=== PATIENT | male | born 1985 | race Caucasian/White ===

== ENCOUNTER 2020-02-17 08:36 | Inpatient (IN) | payer BC ==
[2020-02-17] MEDS ORDERED: Sodium Chloride 0.9% 10 ML Syringe FLUSH PRN (08:45)
--- NOTE | 2020-02-17 08:57 | EDM.PDOC ---
ED HPI GENERAL MEDICAL PROBLEM - General Chief Complaint: Respiratory Problem Stated Complaint: [id number] SOB Time Seen by Provider: 02/17/20 08:45 Source of Information: Reports: Patient, RN, RN Notes Reviewed History Limitations: Reports: No Limitations - History of Present Illness INITIAL COMMENTS - FREE TEXT/NARRATIVE: Patient presents to ER with complaint of shortness of breath, chills. Patient states he was cleaning out a grain bin yesterday, states he feels he may have gotten overheated. Patient denies wearing a mask when he was cleaning out the grain bin. Patient states he did have some chills yesterday, unsure if he had fever. Admits to nausea yesterday but no vomiting, denies diarrhea. Denies nausea today. Patient states cough with deep breathing only. Patient denies being a smoker. Patient denies any known exposure to COVID. Onset: Gradual - Related Data Allergies Allergy/AdvReac Type Severity Reaction Status Date / Time No Known Allergies Allergy Verified 02/17/20 08:46 Home Meds: Home Meds . [No Known Home Meds] 02/17/20 [History] Past Medical History - Past Health History Medical/Surgical History: Denies Medical/Surgical History HEENT History: Reports: None Cardiovascular History: Reports: None Respiratory History: Reports: None Gastrointestinal History: Reports: None Genitourinary History: Reports: None Musculoskeletal History: Reports: None Neurological History: Reports: None Psychiatric History: Reports: None Endocrine/Metabolic History: Reports: None Hematologic History: Reports: None Immunologic History: Reports: None Oncologic (Cancer) History: Reports: None Dermatologic History: Reports: None - Infectious Disease History Infectious Disease History: Reports: None - Past Surgical History Head Surgeries/Procedures: Reports: None Social & Family History - Family History Family Medical History: Noncontributory - Tobacco Use Smoking Status *Q: Never Smoker - Caffeine Use Caffeine Use: Reports: Coffee - Recreational Drug Use Recreational Drug Use: No ED ROS GENERAL - Review of Systems Review Of Systems: Comprehensive ROS is negative, except as noted in HPI. ED EXAM, GENERAL - Physical Exam Exam: See Below Exam Limited By: No Limitations General Appearance: Alert, WD/WN, No Apparent Distress Eye Exam: Bilateral Eye: EOMI, Normal Inspection Ears: Normal External Exam, Hearing Grossly Normal Nose: Normal Inspection Throat/Mouth: Normal Inspection, Normal Voice, No Airway Compromise Head: Atraumatic, Normocephalic Neck: Normal Inspection, Supple, Non-Tender, Full Range of Motion Respiratory/Chest: No Respiratory Distress, No Accessory Muscle Use, Chest Non- Tender, Decreased Breath Sounds Cardiovascular: Normal Peripheral Pulses, Regular Rate, Rhythm, No Edema, No Gallop, No JVD, No Murmur, No Rub Peripheral Pulses: 2+: Radial (L), Radial (R) GI/Abdominal: Normal Bowel Sounds, Soft, Non-Tender (Male) Exam: Deferred Rectal (Males) Exam: Deferred Back Exam: Normal Inspection, Full Range of Motion, NT Extremities: Normal Inspection, Normal Range of Motion, Non-Tender, Normal Capillary Refill, No Pedal Edema Neurological: Alert, Oriented, CN II-XII Intact, Normal Cognition, Normal Gait, Normal Reflexes, No Motor/Sensory Deficits Psychiatric: Normal Affect, Normal Mood Skin Exam: Warm, Dry, Intact, Normal Color, No Rash Lymphatic: No Adenopathy Course - Vital Signs Last Recorded V/S: Last Vital Signs Temp 97.6 F 02/17/20 08:46 Pulse 74 02/17/20 08:46 Resp 24 H 02/17/20 08:46 BP 114/59 L 02/17/20 08:46 Pulse Ox 91 L 02/17/20 08:46 - Orders/Labs/Meds Orders: Active Orders 24 hr Category Date Time Status Admission Diagnosis [ADT] Routine ADT 02/17/20 11:08 Ordered Admission Diagnosis [ADT] Stat ADT 02/17/20 11:08 Ordered Admission Status [Patient Status] [ADT] Routine ADT 02/17/20 11:08 Active Patient Status [ADT] Routine ADT 02/17/20 11:08 Active CULTURE BLOOD [BC] Stat Lab 02/17/20 09:35 Received CULTURE BLOOD [BC] Stat Lab 02/17/20 09:38 Received UA RFX ESTEVAN AND CULT IF INDIC [URIN] Stat Lab 02/17/20 10:09 Ordered Sodium Chloride 0.9% [Saline Flush] Med 02/17/20 08:45 Active 10 ml FLUSH ASDIRECTED PRN Blood Culture x2 Reflex Set [OM.PC] Stat Oth 02/17/20 09:13 Ordered Peripheral IV Insertion Adult [OM.PC] Stat Oth 02/17/20 08:45 Ordered Medication Orders Sodium Chloride (Saline Flush) 10 ml FLUSH ASDIRECTED PRN PRN Reason: Keep Vein Open Last Admin: 02/17/20 09:02 Dose: 10 ml Documented by: FAVIAN Labs: Laboratory Tests 02/17/20 02/17/20 02/17/20 Range/Units 08:56 08:56 08:56 WBC 25.1 H (5.0-10.0) 10^3/uL RBC 5.24 (4.6-6.2) 10^6/uL Hgb 16.0 (14.0-18.0) g/dL Hct 45.8 (40.0-54.0) % MCV 87.4 (80-100) fL MCH 30.5 (27.0-34.0) pg MCHC 34.9 (33.0-35.0) g/dL Plt Count 129 L (150-450) 10^3/uL Neut % (Auto) 93.0 H (42.2-75.2) % Lymph % (Auto) 3.4 L (20.5-50.1) % Freestone % (Auto) 3.5 (2-8) % Eos % (Auto) 0.0 L (1.0-3.0) % Baso % (Auto) 0.1 (0.0-1.0) % Add Manual Diff Yes Neutrophils % (Manual) 74 (42-75) % Band Neutrophils % 24 % Monocytes % (Manual) 2 (2-8) % Toxic Granulation 1+ slight Platelet Estimate Decreased D-Dimer, Quantitative 353 (0-400) ng/mL ABG pH (7.35-7.45) ABG pCO2 (35-45) mmHg ABG pO2 (70-100) mmHg ABG HCO3 (22-26) mmol/L ABG O2 Saturation (95-100) % ABG Base Excess ((-2)-(+3)) mmol/L Francisco Test O2 Delivery Device Oxygen Flow Rate Sodium 139 (136-145) mmol/L Potassium 4.6 (3.5-5.1) mmol/L Chloride 101 (98-107) mmol/L Carbon Dioxide 29 (21-32) mmol/L Anion Gap 13.6 H (7-13) mEq/L BUN 13 (7-18) mg/dL Creatinine 1.25 (0.70-1.30) mg/dL Est Cr Clr Drug Dosing 88.69 mL/min Estimated GFR (MDRD) > 60 BUN/Creatinine Ratio 10.4 (No establ ref range) Glucose 115 H (74-99) mg/dL Lactic Acid (0.4-2.0) mmol/L Calcium 9.1 (8.5-10.1) mg/dL Total Bilirubin 5.4 H (0.2-1.0) mg/dL Direct Bilirubin (0.0-0.2) mg/dL AST 29 (15-37) U/L ALT 33 (16-63) U/L Alkaline Phosphatase 48 (46-116) U/L C-Reactive Protein 21.9 H (0.0-0.9) mg/dL Total Protein 7.7 (6.4-8.2) g/dL Albumin 4.3 (3.4-5.0) g/dL Globulin 3.4 Albumin/Globulin Ratio 1.26 COVID-19 (SHIRIN) (NEGATIVE) 02/17/20 02/17/20 02/17/20 Range/Units 08:56 08:56 08:57 WBC (5.0-10.0) 10^3/uL RBC (4.6-6.2) 10^6/uL Hgb (14.0-18.0) g/dL Hct (40.0-54.0) % MCV (80-100) fL MCH (27.0-34.0) pg MCHC (33.0-35.0) g/dL Plt Count (150-450) 10^3/uL Neut % (Auto) (42.2-75.2) % Lymph % (Auto) (20.5-50.1) % Freestone % (Auto) (2-8) % Eos % (Auto) (1.0-3.0) % Baso % (Auto) (0.0-1.0) % Add Manual Diff Neutrophils % (Manual) (42-75) % Band Neutrophils % % Monocytes % (Manual) (2-8) % Toxic Granulation Platelet Estimate D-Dimer, Quantitative (0-400) ng/mL ABG pH (7.35-7.45) ABG pCO2 (35-45) mmHg ABG pO2 (70-100) mmHg ABG HCO3 (22-26) mmol/L ABG O2 Saturation (95-100) % ABG Base Excess ((-2)-(+3)) mmol/L Francisco Test O2 Delivery Device Oxygen Flow Rate Sodium (136-145) mmol/L Potassium (3.5-5.1) mmol/L Chloride (98-107) mmol/L Carbon Dioxide (21-32) mmol/L Anion Gap (7-13) mEq/L BUN (7-18) mg/dL Creatinine (0.70-1.30) mg/dL Est Cr Clr Drug Dosing mL/min Estimated GFR (MDRD) BUN/Creatinine Ratio (No establ ref range) Glucose (74-99) mg/dL Lactic Acid 1.2 (0.4-2.0) mmol/L Calcium (8.5-10.1) mg/dL Total Bilirubin (0.2-1.0) mg/dL Direct Bilirubin 0.3 H (0.0-0.2) mg/dL AST (15-37) U/L ALT (16-63) U/L Alkaline Phosphatase (46-116) U/L C-Reactive Protein (0.0-0.9) mg/dL Total Protein (6.4-8.2) g/dL Albumin (3.4-5.0) g/dL Globulin Albumin/Globulin Ratio COVID-19 (SHIRIN) Negative (NEGATIVE) 02/17/20 Range/Units 10:05 WBC (5.0-10.0) 10^3/uL RBC (4.6-6.2) 10^6/uL Hgb (14.0-18.0) g/dL Hct (40.0-54.0) % MCV (80-100) fL MCH (27.0-34.0) pg MCHC (33.0-35.0) g/dL Plt Count (150-450) 10^3/uL Neut % (Auto) (42.2-75.2) % Lymph % (Auto) (20.5-50.1) % Freestone % (Auto) (2-8) % Eos % (Auto) (1.0-3.0) % Baso % (Auto) (0.0-1.0) % Add Manual Diff Neutrophils % (Manual) (42-75) % Band Neutrophils % % Monocytes % (Manual) (2-8) % Toxic Granulation Platelet Estimate D-Dimer, Quantitative (0-400) ng/mL ABG pH 7.44 (7.35-7.45) ABG pCO2 38 (35-45) mmHg ABG pO2 77 (70-100) mmHg ABG HCO3 25.2 (22-26) mmol/L ABG O2 Saturation 95 (95-100) % ABG Base Excess 2 ((-2)-(+3)) mmol/L Francisco Test Lb O2 Delivery Device Room air Oxygen Flow Rate 0 Sodium (136-145) mmol/L Potassium (3.5-5.1) mmol/L Chloride (98-107) mmol/L Carbon Dioxide (21-32) mmol/L Anion Gap (7-13) mEq/L BUN (7-18) mg/dL Creatinine (0.70-1.30) mg/dL Est Cr Clr Drug Dosing mL/min Estimated GFR (MDRD) BUN/Creatinine Ratio (No establ ref range) Glucose (74-99) mg/dL Lactic Acid (0.4-2.0) mmol/L Calcium (8.5-10.1) mg/dL Total Bilirubin (0.2-1.0) mg/dL Direct Bilirubin (0.0-0.2) mg/dL AST (15-37) U/L ALT (16-63) U/L Alkaline Phosphatase (46-116) U/L C-Reactive Protein (0.0-0.9) mg/dL Total Protein (6.4-8.2) g/dL Albumin (3.4-5.0) g/dL Globulin Albumin/Globulin Ratio COVID-19 (SHIRIN) (NEGATIVE) Meds: Medications Generic Name Dose Route Start Last Admin Trade Name Freq PRN Reason Stop Dose Admin Sodium Chloride 10 ml 02/17/20 08:45 02/17/20 09:02 Saline Flush FLUSH 10 ml ASDIRECTED PRN Administration Keep Vein Open Discontinued Medications Generic Name Dose Route Start Last Admin Trade Name Freq PRN Reason Stop Dose Admin Ceftriaxone Sodium 1 gm/ 50 mls @ 100 mls/hr 02/17/20 09:53 02/17/20 10:06 Sodium Chloride IV 02/17/20 10:22 100 mls/hr ONETIME ONE Administration Sodium Chloride 1,000 mls @ 999 mls/hr 02/17/20 09:59 02/17/20 10:06 Normal Saline IV 02/17/20 10:59 999 mls/hr .BOLUS ONE Administration Iopamidol 100 ml 02/17/20 10:12 02/17/20 10:32 Isovue-300 (61%) IVPUSH 02/17/20 10:13 75 ml ONETIME ONE Administration Methylprednisolone Sodium Succinate 125 mg 02/17/20 09:53 02/17/20 10:06 Solu-Medrol IVPUSH 02/17/20 09:54 125 mg ONETIME ONE Administration - Radiology Interpretation Free Text/Narrative:: Chest xray: PROCEDURE INFORMATION: Exam: XR Chest, 1 View Exam date and time: 02/17/2020 8:50 AM Age: 34 years old Clinical indication: Other: SOB, sats 91%, chills TECHNIQUE: Imaging protocol: XR of the chest Views: 1 view. COMPARISON: No relevant prior studies available. FINDINGS: Lungs: Unremarkable. No consolidation. Pleural space: Unremarkable. No pleural effusion. No pneumothorax. Heart/Mediastinum: Unremarkable. No cardiomegaly. Bones/joints: Unremarkable. IMPRESSION: No acute findings. Thank you for allowing us to participate in the care of your patient. Dictated and Authenticated by: Naveen Chase MD 02/17/2020 9:40 AM Central Time ([place] & [place]) Chest CT with contrast: PROCEDURE INFORMATION: Exam: CT Chest With Contrast Exam date and time: 02/17/2020 10:21 AM Age: 34 years old Clinical indication: Shortness of breath; Additional info: SOB, sats 90% ra, crp elevated wbc 25 TECHNIQUE: Imaging protocol: Computed tomography of the chest with intravenous contrast. Radiation optimization: All CT scans at this facility use at least one of these dose optimization techniques: automated exposure control; mA and/or kV adjustment per patient size (includes targeted exams where dose is matched to clinical indication); or iterative reconstruction. Contrast material: [id number]; Contrast volume: 75 ml; Contrast route: INTRAVENOUS (IV); COMPARISON: CR Chest 1V Frontal 02/17/2020 8:50 AM FINDINGS: Lungs: Minimal basilar atelectasis is seen bilaterally. There is a small nodule noted involving the right upper lobe measuring 2 mm on image 4/31. Pleural space: Unremarkable. No pneumothorax. No pleural effusion. Heart: Unremarkable. No cardiomegaly. No pericardial effusion. Aorta: Unremarkable. No aortic aneurysm. Lymph nodes: Unremarkable. No enlarged lymph nodes. Bones/joints: Unremarkable. No acute fracture. Soft tissues: Unremarkable. IMPRESSION: Minimal bibasilar possible dependent atelectasis. Small right upper lobe nodule. For patients at low risk (minimal or absent history of smoking and of other known risk factors), no routine follow-up is indicated. For patients at high risk (history of smoking or of other known risk factors), consider optional CT at 12 months. (dhaval Centeno al., Fleischner Society, 2017). In Thank you for allowing us to participate in the care of your patient. Dictated and Authenticated by: Naveen Chase MD 02/17/2020 10:49 AM Central Time ([place] & [place]) See rad report - Re-Assessments/Exams Free Text/Narrative Re-Assessment/Exam: 02/17/20 11:16 Discussed patient case with Dr. Argueta who agreed to admit the patient for inpatient admission. Departure - Departure Time of Disposition: 11:16 Disposition: Admitted As Inpatient 66 Condition: Fair Clinical Impression: Pneumonia Qualifiers: Pneumonia type: due to unspecified organism Laterality: bilateral Lung location: unspecified part of lung Qualified Code(s): J18.9 - Pneumonia, unspecified organism - Discharge Information *PRESCRIPTION DRUG MONITORING PROGRAM REVIEWED*: No *COPY OF PRESCRIPTION DRUG MONITORING REPORT IN PATIENT [facility]: No Forms: ED Department Discharge Sepsis Event Note (ED) - Evaluation Sepsis Screening Result: No Definite Risk - Focused Exam Vital Signs: Vital Signs Temp Pulse Resp BP Pulse Ox 02/17/20 08:46 97.6 F 74 24 H 114/59 L 91 L - My Orders Last 24 Hours: My Active Orders 02/17/20 08:45 Sodium Chloride 0.9% [Saline Flush] 10 ml FLUSH ASDIRECTED PRN Peripheral IV Insertion Adult [OM.PC] Stat 02/17/20 09:13 Blood Culture x2 Reflex Set [OM.PC] Stat 02/17/20 09:35 CULTURE BLOOD [BC] Stat 02/17/20 09:38 CULTURE BLOOD [BC] Stat 02/17/20 10:09 UA RFX ESTEVAN AND CULT IF INDIC [URIN] Stat 02/17/20 11:08 Admission Diagnosis [ADT] Stat Admission Status [Patient Status] [ADT] Routine - Assessment/Plan Last 24 Hours: My Active Orders 02/17/20 08:45 Sodium Chloride 0.9% [Saline Flush] 10 ml FLUSH ASDIRECTED PRN Peripheral IV Insertion Adult [OM.PC] Stat 02/17/20 09:13 Blood Culture x2 Reflex Set [OM.PC] Stat 02/17/20 09:35 CULTURE BLOOD [BC] Stat 02/17/20 09:38 CULTURE BLOOD [BC] Stat 02/17/20 10:09 UA RFX ESTEVAN AND CULT IF INDIC [URIN] Stat 02/17/20 11:08 Admission Diagnosis [ADT] Stat Admission Status [Patient Status] [ADT] Routine
[2020-02-17 09:29] LABS: ANION GAP 13.6 mEq/L (7-13); CHLORIDE,CL 101 mmol/L (98-107); SODIUM,NA 139 mmol/L (136-145)
--- NOTE | 2020-02-17 09:40 | CR ---
PROCEDURE INFORMATION: Exam: XR Chest, 1 View Exam date and time: 02/17/2020 8:50 AM Age: 34 years old Clinical indication: Other: SOB, sats 91%, chills TECHNIQUE: Imaging protocol: XR of the chest Views: 1 view. COMPARISON: No relevant prior studies available. FINDINGS: Lungs: Unremarkable. No consolidation. Pleural space: Unremarkable. No pleural effusion. No pneumothorax. Heart/Mediastinum: Unremarkable. No cardiomegaly. Bones/joints: Unremarkable. IMPRESSION: No acute findings.
[2020-02-17] MEDS ORDERED: methylPREDNISolone Sodium Succinate 125 MG/2 ML SDV IVPUSH ONE (09:53)
[2020-02-17] MEDS ORDERED: cefTRIAXone 1 GM in Sodium Chloride 0.9% 50 ML IV ONE (09:53)
[2020-02-17] MEDS ORDERED: Sodium Chloride 0.9% 1,000 ML IV ONE (09:59)
[2020-02-17 10:08] LABS: BASE EXCESS ARTERIAL 2 mmol/L ((-2)-(+3)); BICARBONATE,ARTERIAL 25.2 mmol/L (22-26); O2 DELIVERY DEVICE ROOM AIR; O2 SATURATION ARTERIAL 95 % (95-100); PCO2 ARTERIAL 38 mmHg (35-45); PO2 ARTERIAL 77 mmHg (70-100)
[2020-02-17 10:11] LABS: ALLEN TEST LB; O2 FLOW RATE 0
[2020-02-17] MEDS ORDERED: Iopamidol 612 MG/ML 100 ML Bottle IVPUSH ONE (10:12)
--- NOTE | 2020-02-17 10:49 | CT ---
PROCEDURE INFORMATION: Exam: CT Chest With Contrast Exam date and time: 02/17/2020 10:21 AM Age: 34 years old Clinical indication: Shortness of breath; Additional info: SOB, sats 90% ra, crp elevated wbc 25 TECHNIQUE: Imaging protocol: Computed tomography of the chest with intravenous contrast. Radiation optimization: All CT scans at this facility use at least one of these dose optimization techniques: automated exposure control; mA and/or kV adjustment per patient size (includes targeted exams where dose is matched to clinical indication); or iterative reconstruction. Contrast material: [id number]; Contrast volume: 75 ml; Contrast route: INTRAVENOUS (IV); COMPARISON: CR Chest 1V Frontal 02/17/2020 8:50 AM FINDINGS: Lungs: Minimal basilar atelectasis is seen bilaterally. There is a small nodule noted involving the right upper lobe measuring 2 mm on image 4/31. Pleural space: Unremarkable. No pneumothorax. No pleural effusion. Heart: Unremarkable. No cardiomegaly. No pericardial effusion. Aorta: Unremarkable. No aortic aneurysm. Lymph nodes: Unremarkable. No enlarged lymph nodes. Bones/joints: Unremarkable. No acute fracture. Soft tissues: Unremarkable. IMPRESSION: Minimal bibasilar possible dependent atelectasis. Small right upper lobe nodule. For patients at low risk (minimal or absent history of smoking and of other known risk factors), no routine follow-up is indicated. For patients at high risk (history of smoking or of other known risk factors), consider optional CT at 12 months. (Jacobo et al., Fleischner Society, 2017). In
[2020-02-17] MEDS ORDERED: Acetaminophen 325 MG Tab PO PRN (11:42)
[2020-02-17] MEDS ORDERED: Docusate Sodium 100 MG Cap PO PRN (11:42)
[2020-02-17] MEDS ORDERED: Acetaminophen/oxyCODONE 325-5 MG Tab PO PRN (11:42)
[2020-02-17] MEDS ORDERED: Azithromycin 500 MG in Sodium Chloride 0.9% 250 ML IV SCH (12:00)
[2020-02-17] MEDS: Sodium Chloride 0.9% 1,000 ML IV SCH ×2 (12:34→22:34)
[2020-02-17] MEDS: Albuterol/Ipratropium 3.0-0.5 MG/3 ML Neb Soln NEB SCH ×2 (13:46→17:57)
--- NOTE | 2020-02-17 17:21 | HP ---
CHIEF COMPLAINT: Shortness of breath. HISTORY OF PRESENT ILLNESS: The patient is a 34-year-old gentleman who was admitted through the emergency room because the patient was complaining of shortness of breath. The patient mentioned that, yesterday, he started having fever and chills after he finished cleaning out a green bin. He also felt that he may have gotten overheated. The patient denies, though, any chest pain, orthopnea, PND, headache, abdominal pain, or any other complaints. Every time he takes a deep breath, it triggers some coughing spells. Because of the shortness of breath, he was seen in the emergency room and in the emergency room, his WBC was noted to be significantly elevated to 25,000, and left shift. CAT scan of the chest showed bibasilar atelectasis and small right upper lobe nodule. He was then admitted for further management of pneumonitis. PAST MEDICAL HISTORY: Unremarkable. FAMILY HISTORY: Noncontributory. SOCIAL HISTORY: The patient is . Nonsmoker. Occasional alcohol drinker. No illicit drug use. HOME MEDICATIONS: None. ALLERGIES: No known drug allergies. REVIEW OF SYSTEMS: As in HPI. The rest of review of systems is negative. PHYSICAL EXAMINATION: General: The patient is alert and oriented, not in any acute distress. Vital Signs: Blood pressure is 114/59, pulse of 74, respirations of 24, saturation of 91% on room air, and temperature is 97.6. SHEENT: Normocephalic. There are pink palpebral conjunctivae. Neck: No JVD. No lymphadenopathy. Supple. Heart: Regular rate and rhythm. Normal S1 and S2. No gallops. No rubs. Lungs: Coarse breath sounds bilaterally, but breath sounds equal. No significant wheezing. Abdomen: Soft and nontender. Bowel sounds positive. Extremities: Negative for any pedal edema. No calf tenderness. LABORATORY DATA: CBC: WBC is 25.1, hemoglobin is 16, hematocrit is 45.8, and platelets 129. Neutrophils of 93 with 1+ slight toxic granulation. D-dimer is 353. Lactic acid is 1.2. Total bilirubin is 5.4 with direct bilirubin of 0.3. ABG; pH of 7.44, pCO2 of 38, PO2 of 77, bicarb of 25.2, saturation is 95% on room air. Comp panel: Sodium is 139, potassium is 4.6, chloride of 101, carbon dioxide 29, anion gap is 13.6, BUN is 13, creatinine is 1.25, and glucose is 115. AST and ALT are within normal limits. C-reactive protein is 21.9. ADMITTING DIAGNOSES: 1. Systemic inflammatory response syndrome. 2. Pneumonitis. 3. Lung nodule. 4. Elevated bilirubin. TREATMENT PLAN: The patient is going to be admitted to general medicine floor. He will be started on IV antibiotics, Rocephin and azithromycin. He will be on neb treatment. Blood cultures ordered. The rest of the management as necessary. The patient is a full code. [facility] /[id number]
[2020-02-18] MEDS: Albuterol/Ipratropium 3.0-0.5 MG/3 ML Neb Soln NEB SCH ×2 (00:48→07:30)
[2020-02-18] MEDS: Sodium Chloride 0.9% 1,000 ML IV SCH (06:04)
[2020-02-18 07:08] LABS: ANION GAP 13.3 mEq/L (7-13); CHLORIDE,CL 108 mmol/L (98-107); SODIUM,NA 142 mmol/L (136-145)
[2020-02-18] MEDS ORDERED: Enoxaparin 40 MG/0.4 ML Syringe SUBCUT SCH (09:00)
--- NOTE | 2020-02-18 10:23 | PN ---
DATE: 02/18/2020 SUBJECTIVE: The patient this morning is feeling much better and shortness of breath has improved. The patient denies any other ongoing complaints. No chest pain, orthopnea, PND. LAB WORKUP THIS MORNING: CBC; WBC is 16.4, hemoglobin is 13.6, hematocrit is 39.6, and platelets 116. Basic metabolic panel; chloride is 108, anion gap is 13.3, glucose is 119, calcium is 8.3, and total bilirubin of 1.9 (improvement), and total protein is 6.3, albumin is 3.2. OBJECTIVE: Vital Signs: Blood pressure is 109/66, pulse of 54, respirations 16, temperature of 99.2. Heart: Regular rate and rhythm. Normal S1 and S2. No gallops. No rubs. Lungs: Equal bilaterally. No crackles. No wheezing. Abdomen: Soft, nontender. Bowel sounds positive. Extremities: Negative for any pedal edema. No calf tenderness. PLAN: The patient would like to go home today and we will discharge the patient home today, but he was advised to follow up with a primary care provider in 1 week for a recheck of his CBC and comp panel, and the patient was also advised to make sure that he has a followup CAT scan of the chest in about 3 to 6 months because of the lung nodule. [facility] /[id number]
--- NOTE | 2020-02-18 11:22 | DISCH ---
FINAL DIAGNOSES: 1. Systemic inflammatory response syndrome. 2. Pneumonitis. 3. Lung nodule. 4. Elevated bilirubin. 5. Mild thrombocytopenia. BRIEF HISTORY OF PRESENT ILLNESS: Please see H and P. PERTINENT LABS, X-RAY AND OTHER TESTS ON ADMISSION: See H and P. CAT scan of the chest showed minimal bibasilar possible dependent atelectasis and small right upper lobe nodule (2 mm on the image). HOSPITAL COURSE: The patient was admitted to General Medicine floor and the patient was empirically started on IV antibiotics, that is IV Zithromax and ceftriaxone. He was also given DuoNeb treatment and was placed on Lovenox for deep vein thrombosis prophylaxis. The patient did well with the above regimen with improvement of his shortness of breath and repeat CBC showed some improvement on his WBC to 16.4 from 25.1. Also follow up of his bilirubin that was elevated on admission to 5.4, now it is down to 1.9. The rest of the hospital course was uncomplicated, and he was subsequently discharged. CONDITION ON DISCHARGE: Improved. FOLLOWUP: He is going to follow up with the primary care provider for a recheck of his CBC and comp panel in 1 week, and also the patient was advised to have a followup CAT scan of his chest for followup of the lung nodule in 3 to 6 months. [facility] /[id number]
[2020-02-18] MEDS ORDERED: cefTRIAXone 1 GM in Sodium Chloride 0.9% 50 ML IV SCH (13:00)
== END 2020-02-18 10:05 | disposition home or self-care (01) | DRG 139 ==
LOC: DL.ED 08:36 → DL.MS 11:08 → DL.ED 11:08
PROVIDERS: ADMIT Internal Medicine; ATTEND Internal Medicine
DX: J18.9 Pneumonia, unspecified organism (principal); D69.6 Thrombocytopenia, unspecified; R65.10 Systemic inflammatory response syndrome (SIRS) of non-infectious origin without acute organ dysfunction; J98.11 Atelectasis; Z20.828 Contact with and (suspected) exposure to other viral communicable diseases
CPT/HCPCS: 36415; 36600; 71045; 71260; 80053; 81001; 82248; 82803; 83605; 85025; 85027; 85379; 86140; 87040; 94640; 96361; 96365; 96375; 99285-25; J0456; J0696; J2930; J7030; J7050; J7620-GY; Q9967; U0002